=== PATIENT | female | born 1990 | race Caucasian/White ===

== ENCOUNTER 2017-02-10 07:23 | Emergency (ER) | payer OTHER ==
[2017-02-10 07:31] VITALS: BP 126/81
[2017-02-10] MEDS ORDERED: ROCEPHIN IM ONE (08:20)
[2017-02-10] MEDS ORDERED: XYLOCAINE 1% MPF 5 mL INFILTRATI ONE (08:20)
[2017-02-10] MEDS ORDERED: DECADRON IM ONE (08:20)
--- NOTE | 2017-02-10 08:23 | Emergency Department Report ---
ED ENT HPI - General Chief complaint: Earache Stated complaint: PAIN IN BOTH EARS Time Seen by Provider: 02/10/17 08:11 Source: patient Mode of arrival: Ambulatory Limitations: No Limitations - History of Present Illness Initial comments: Patient comes into the ER today with complaints of bilateral ear pain for the past 4-5 days. Patient states that the pain started in her right ear and has now progressed into her left ear. Patient denies any injury. Patient does state that she went to an urgent care clinic 2 days ago and was prescribed ear drops as well as ibuprofen without any relief in symptoms. MD complaint: ear pain Consistency: constant Improves with: none Worsens with: swallowing Context- Ear: recent swimming Associated Symptoms: hearing loss, rhinorrhea. denies: fever, cough, gum swelling, toothache, sore throat, discharge from ear - Related Data Previous Rx's Medication Instructions Recorded Last Taken Type Amoxicillin 1,000 mg PO BID #40 capsule 02/10/17 Unknown Rx traMADol [Ultram 50 MG tab] 50 mg PO Q4HR PRN #20 tablet 02/10/17 Unknown Rx Allergies Allergy/AdvReac Type Severity Reaction Status Date / Time No Known Allergies Allergy Unverified 02/10/17 07:27 ED Dental HPI - General Chief complaint: Earache Stated complaint: PAIN IN BOTH EARS Time Seen by Provider: 02/10/17 08:11 Source: patient Mode of arrival: Ambulatory Limitations: No Limitations - Related Data Previous Rx's Medication Instructions Recorded Last Taken Type Amoxicillin 1,000 mg PO BID #40 capsule 02/10/17 Unknown Rx traMADol [Ultram 50 MG tab] 50 mg PO Q4HR PRN #20 tablet 02/10/17 Unknown Rx Allergies Allergy/AdvReac Type Severity Reaction Status Date / Time No Known Allergies Allergy Unverified 02/10/17 07:27 ED Review of Systems ROS: Stated complaint: PAIN IN BOTH EARS Other details as noted in HPI Constitutional: denies: chills, fever Eyes: denies: eye pain, eye discharge, vision change ENT: ear pain, hearing loss. denies: throat pain, epistaxis Respiratory: denies: cough, shortness of breath, wheezing Cardiovascular: denies: chest pain, palpitations Endocrine: no symptoms reported Gastrointestinal: denies: abdominal pain, nausea, diarrhea Genitourinary: denies: urgency, dysuria, discharge Musculoskeletal: denies: back pain, joint swelling, arthralgia Skin: denies: rash, lesions Neurological: denies: headache, weakness, paresthesias Psychiatric: denies: anxiety, depression Hematological/Lymphatic: denies: easy bleeding, easy bruising ED Past Medical Hx - Past Medical History Previous Medical History?: Yes Additional medical history: earache - Surgical History Past Surgical History?: No - Social History Smoking Status: Never Smoker Substance Use Type: Alcohol, Prescribed - Medications Home Medications: Home Medications Medication Instructions Recorded Confirmed Last Taken Type Amoxicillin 1,000 mg PO BID #40 capsule 02/10/17 Unknown Rx traMADol [Ultram 50 MG tab] 50 mg PO Q4HR PRN #20 tablet 02/10/17 Unknown Rx ED Physical Exam - General Limitations: No Limitations (patient does appear to be in pain from her ears.) General appearance: alert, in no apparent distress - Head Head exam: Present: atraumatic, normocephalic - Eye Eye exam: Present: normal appearance - ENT ENT exam: Present: mucous membranes moist, normal external ear exam - Expanded ENT Exam Expanded TM/Canal exam: Erythema: Left TM, Right TM, Bulging: Right TM, Left TM, Loss of Landmarks: Right TM, Left TM Throat exam: Positive: tonsillar erythema, tonsillar exudate. Negative: R peritonsillar mass, L peritonsillar mass - Neck Neck exam: Present: normal inspection, full ROM. Absent: tenderness, lymphadenopathy, thyromegaly - Respiratory Respiratory exam: Present: normal lung sounds bilaterally. Absent: respiratory distress, wheezes, rales, rhonchi - Cardiovascular Cardiovascular Exam: Present: regular rate, normal rhythm. Absent: systolic murmur, diastolic murmur, rubs, gallop - GI/Abdominal GI/Abdominal exam: Present: soft, normal bowel sounds - Extremities Exam Extremities exam: Present: normal inspection - Back Exam Back exam: Present: normal inspection - Neurological Exam Neurological exam: Present: alert, oriented X3 - Psychiatric Psychiatric exam: Present: normal affect, normal mood - Skin Skin exam: Present: warm, dry, intact, normal color. Absent: rash ED Course Vital Signs 02/10/17 07:27 Temperature 98 F Pulse Rate 80 Respiratory 20 Rate Blood Pressure 126/81 O2 Sat by Pulse 100 Oximetry ED Medical Decision Making - Medical Decision Making Patient is nontoxic and hemodynamically stable. Patient found to have bilateral inner ear infections on examination. Patient is without complaints of sore throat but she does have exudative tonsils noted and I am concerned for potential strep throat. Follow-up did not swab the patient's throat for strep as the antibiotics I prescribed her for the ear infections will treat the potential throat infection. I will excuse patient from work and patient is stable for discharge. Critical care attestation.: If time is entered above; I have spent that time in minutes in the direct care of this critically ill patient, excluding procedure time. ED Disposition Clinical Impression: Bilateral acute otitis media, Exudative pharyngitis Disposition: DISCHARGED TO HOME OR SELFCARE Is pt being admited?: No Does the pt Need Aspirin: No Condition: Good Instructions: Otitis Media (ED), Strep Throat (ED) Prescriptions: Amoxicillin 1,000 mg PO BID #40 capsule traMADol [Ultram 50 MG tab] 50 mg PO Q4HR PRN #20 tablet PRN Reason: Pain Referrals: PRIMARY CARE, [Primary Care Provider] - 3-5 Days Forms: Work/School Release Form(ED) Time of Disposition: 08:31
== END 2017-02-10 09:33 | disposition home or self-care (01) ==
LOC: ED 07:23
DX: H66.93 Otitis media, unspecified, bilateral (principal); J02.9 Acute pharyngitis, unspecified
CPT/HCPCS: 96372; 99282; J0696; J1100

== ENCOUNTER 2020-10-01 21:08 | Emergency (ER) | payer MEDICAID ==
[2020-10-01 21:17] VITALS: BP 152/83
--- NOTE | 2020-10-01 21:22 | Emergency Department Report ---
Blank Doc - Documentation Documentation: 29-year-old female presents emergency department complaining of being 6 weeks and developing some vaginal bleeding of about an hour or 2 prior to arrival with minimal pain. She reports no known trauma reports no fever, chills, sweats no chest pain no palpitation no nausea no vomiting This initial assessment/diagnostic orders/clinical plan/treatment(s) is/are subject to change based on patients health status, clinical progression and re- assessment by fellow clinical providers in the ED. Further treatment and workup at subsequent clinical providers discretion. Patient/guardian urged not to elope from the ED as their condition may be serious if not clinically assessed and managed. Initial orders include: Labs, all ultrasound
[2020-10-01 22:06] LABS: Bilirubin,Urine NEG (Negative); Blood,Urine LG (Negative); Color,Urine Yellow (Yellow); Mucus,Urine FEW /HPF; RBC,Urine > 182.0 /HPF (0.0-6.0); Urobilinogen,Urine < 2.0 mg/dL (<2.0)
[2020-10-01 22:56] LABS: Basophils % (Auto) 0.3 % (0.0-1.8); Eosinophils # (Auto) 0.2 K/mm3 (0.0-0.4); Eosinophils % (Auto) 1.8 % (0.0-4.3); Hematocrit 41.1 % (30.3-42.9); Hemoglobin 13.5 gm/dl (10.1-14.3); Lymphocytes # (Auto) 3.9 K/mm3 (1.2-5.4); Lymphocytes % (Auto) 38.4 % (13.4-35.0); Mean Corpuscular HGB Conc 33 % (30-34); Mean Corpuscular Volume 89 fl (79-97); Monocytes # (Auto) 0.5 K/mm3 (0.0-0.8); Monocytes % (Auto) 4.7 % (0.0-7.3); Platelet Count 238 K/mm3 (140-440); Red Blood Count 4.64 M/mm3 (3.65-5.03); Red Cell Distribution Width 13.5 % (13.2-15.2)
--- NOTE | 2020-10-02 00:46 | Emergency Department Report ---
ED HPI - General Chief complaint: Vaginal Bleeding Stated complaint: 6WKS /BLEEDING Time Seen by Provider: 10/01/20 21:15 Source: patient Mode of arrival: Ambulatory Limitations: No Limitations - History of Present Illness Initial comments: Patient is a 29-year-old female that presents emergency room with complaints of vaginal bleeding. Patient states that she has confirmed but not had an ultrasound. Patient states she has an appointment next week for a initial [facility] appointment. Patient states that her bleeding started at 7 PM yesterday. Patient states that the bleeding is light. Patient denies clots. Patient de nies abdominal pain. Patient denies contractions. Patient denies any pain. Patient denies fever and chills. Patient denies abdominal pain. Patient denies pelvic pain. Patient states she is 6 weeks . Patient denies recent travel. Patient denies recent international travel. Patient denies exposure to the novel coronavirus. Patient denies sick contacts. Patient denies fever and chills. Patient denies cough. Patient denies diarrhea. Patient denies coming in contact with anybody with symptoms of the novel coronavirus. MD Complaint: abdominal pain Radiation: none Severity scale (0 -10): 0 Consistency: constant Improves with: none Worsens with: none Associated symptoms: vaginal bleeding. denies: nausea/vomiting, vaginal discharge, abdominal pain, dysuria, headache, vision changes, malaise, dyspa ruenia, rash, seizure, shortness of breath, syncope, weakness Vaginal bleeding: light :: Yes Number of weeks : 6 OB History - Current : no complications Pre-rylan care: none - Related Data : 1 Para: 0 Ab: 0 Previous Rx's Medication Instructions Recorded Last Taken Type Amoxicillin 1,000 mg PO BID #40 capsule 02/10/17 Unknown Rx traMADoL [Ultram 50 MG tab] 50 mg PO Q4HR PRN #20 tablet 02/10/17 Unknown Rx Allergies Allergy/AdvReac Type Severity Reaction Status Date / Time No Known Allergies Allergy Unverified 02/10/17 07:27 ED Review of Systems ROS: Stated complaint: 6WKS /BLEEDING Other details as noted in HPI Constitutional: denies: chills, fever Eyes: denies: eye pain, eye discharge, vision change ENT: denies: ear pain, throat pain Respiratory: denies: cough, shortness of breath, wheezing Cardiovascular: denies: chest pain, palpitations Endocrine: no symptoms reported Gastrointestinal: denies: abdominal pain, nausea, diarrhea Genitourinary: as per HPI. denies: urgency, dysuria, discharge Musculoskeletal: denies: back pain, joint swelling, arthralgia Skin: denies: rash, lesions Neurological: denies: headache, weakness, paresthesias Psychiatric: denies: anxiety, depression Hematological/Lymphatic: denies: easy bleeding, easy bruising ED Past Medical Hx - Past Medical History Previous Medical History?: No Additional medical history: earache - Surgical History Past Surgical History?: No - Family History Family history: no significant - Social History Smoking Status: Never Smoker Substance Use Type: None - Medications Home Medications: Home Medications Medication Instructions Recorded Confirmed Last Taken Type Amoxicillin 1,000 mg PO BID #40 capsule 02/10/17 Unknown Rx traMADoL [Ultram 50 MG tab] 50 mg PO Q4HR PRN #20 tablet 02/10/17 Unknown Rx ED Physical Exam - General Limitations: No Limitations General appearance: alert, in no apparent distress - Head Head exam: Present: atraumatic, normocephalic - Eye Eye exam: Present: normal appearance - ENT ENT exam: Present: mucous membranes moist - Neck Neck exam: Present: normal inspection - Respiratory Respiratory exam: Present: normal lung sounds bilaterally. Absent: respiratory distress - Cardiovascular Cardiovascular Exam: Present: regular rate, normal rhythm. Absent: systolic murmur, diastolic murmur, rubs, gallop - GI/Abdominal GI/Abdominal exam: Present: soft, normal bowel sounds. Absent: distended, tenderness, guarding - Extremities Exam Extremities exam: Present: normal inspection - Back Exam Back exam: Present: normal inspection - Neurological Exam Neurological exam: Present: alert, oriented X3 - Psychiatric Psychiatric exam: Present: normal affect, normal mood - Skin Skin exam: Present: warm, dry, intact, normal color. Absent: rash ED Course Vital Signs 10/01/20 21:12 Temperature 98.1 F Pulse Rate 107 H Respiratory 18 Rate Blood Pressure 152/83 O2 Sat by Pulse 95 Oximetry - Reevaluation(s) Reevaluation #1: Patient states she is still pain-free. I discussed all results and clinical findings with patient. I discussed plan of care with patient. Patient agrees with plan of care. Patient is stable for discharge. Patient will be discharged home. Patient given discharge instructions. Patient voiced understanding of discharge instructions. 10/02/20 02:21 ED Medical Decision Making - Lab Data Result diagrams: 10/01/20 21:28 - Radiology Data Radiology results: report reviewed PELVIC ULTRASOUND INDICATION: Vaginal bleeding, positive serum test COMPARISON: None pertinent available TECHNIQUE: Transabdominal FINDINGS: Uterus measures 6.8 x 3.2 x 4.5 cm. Endometrial stripe measures 8 mm. No fluid is noted within the endometrium. No gestational sac can be identified. I cannot confirm an intrauterine . Right ovary measures 3.4 cm in length and shows no abnormalities. Left ovary measures 7.6 cm in length and shows 2 adjacent simple cysts measuring up to 3.7 cm. No significant increased flow is noted though flow is seen in both ovaries. No free fluid is seen. IMPRESSION: Intrauterine is not confirmed at this time. Left ovarian cysts are seen but these are simple in nature and do not show increased flow and are not strongly suggestive of ectopic . However, I cannot exclude by these findings and clinical follow-up is needed. - Medical Decision Making Patient is a 29-year-old female that presents emergency room with complaints of vaginal bleeding and being 6 weeks . Patient is having abdominal pain. Patient has no other complaints. Patient had labs done which were essentially unremarkable. Patient's quant was only 67. Patient had a ultrasound which could not confirm IUP due to no pole noted. Differentials include threatened miscarriage versus miscarriage, early . Patient will be discharged home. Patient stable for discharge. Patient will need to follow-up with an [facility] for further evaluation and treatment. Patient given discharge instructions. - Differential Diagnosis Miscarriage, IUP, bleeding in . Vaginal bleeding Critical care attestation.: If time is entered above; I have spent that time in minutes in the direct care of this critically ill patient, excluding procedure time. ED Disposition Clinical Impression: Threatened miscarriage, Vaginal bleeding before 22 weeks gestation Qualifiers: Weeks of gestation: less than 8 weeks Qualified Code(s): Z3A.01 - Less than 8 weeks gestation of Disposition: DC-01 TO HOME OR SELFCARE Is pt being admited?: No Does the pt Need Aspirin: No Condition: Stable Instructions: Threatened Miscarriage, Vaginal Bleeding During , First Trimester, [place]-et-[place] Additional Instructions: Patient to follow-up with primary care in 2 to 3 days. Patient to follow-up with [facility] in 2 to 3 days. Patient to rest. Patient to increase water. Patient to avoid strenuous exercise or heavy lifting until cleared by [facility]. Patient to take Tylenol as needed for pain. Patient to take meds as directed. Patient to return to the ER if condition worsens, changes or new symptoms arise. Referrals: PRIMARY CARE, [Primary Care Provider] - 2-3 Days KYUNG CHAUDHARI MD [Staff Physician] - 2-3 Days Time of Disposition: 02:16
--- NOTE | 2020-10-02 02:08 | Ultrasound Report ---
PELVIC ULTRASOUND INDICATION: Vaginal bleeding, positive serum test COMPARISON: None pertinent available TECHNIQUE: Transabdominal FINDINGS: Uterus measures 6.8 x 3.2 x 4.5 cm. Endometrial stripe measures 8 mm. No fluid is noted wit hin the endometrium. No gestational sac can be identified. I cannot confirm an intrauterine . Right ovary measures 3.4 cm in length and shows no abnormalities. Left ovary measures 7.6 cm in lengt h and shows 2 adjacent simple cysts measuring up to 3.7 cm. No significant increased flow is noted th ough flow is seen in both ovaries. No free fluid is seen. IMPRESSION: Intrauterine is not confirmed at this time. Left ovarian cysts are seen but the se are simple in nature and do not show increased flow and are not strongly suggestive of ectopic pre gnancy. However, I cannot exclude by these findings and clinical follow-up is needed. Signer Name: Faheem Carrillo MD Signed: 10/02/2020 2:03 AM Workstation Name: [id number]
== END 2020-10-02 02:20 | disposition home or self-care (01) ==
LOC: ED 21:08
DX: O20.0 Threatened abortion (principal); Z3A.01 Less than 8 weeks gestation of pregnancy; Z79.899 Other long term (current) drug therapy
CPT/HCPCS: 36415; 76801; 81001; 84702; 85025; 86900; 86901